=== PATIENT | male | born 1980 | race Caucasian/White ===

== ENCOUNTER 2016-05-21 12:38 | Outpatient (CLI) | payer OTHER ==
[2016-05-21] MEDS ORDERED: GADOPENTETATE DIMEGLUMINE 5 ML VIAL IVP ONE (14:43)
[2016-05-21] MEDS ORDERED: BUFFERED LIDOCAINE 10 ML SYRINGE IU ONE (14:43)
[2016-05-21] MEDS ORDERED: LIDOCAINE-MPF 1% 30 ML VIAL SUBQ ONE (14:43)
[2016-05-21] MEDS ORDERED: IOTHALAMATE MEGLUMINE 50 ML VIAL IVP ONE (14:43)
== END 2016-05-21 12:39 | disposition home or self-care (01) ==
DX: M24.412 Recurrent dislocation, left shoulder (principal); R20.2 Paresthesia of skin; M25.512 Pain in left shoulder
CPT/HCPCS: 23350; 73222; 77002; Q9961

== ENCOUNTER 2017-07-11 11:10 | Outpatient (CLI) | payer OTHER ==
[2017-07-11] MEDS ORDERED: IOPAMIDOL-300 100 ML VIAL ONE (11:24)
[2017-07-11] MEDS ORDERED: IOPAMIDOL-300 50 ML VIAL ONE (11:24)
[2017-07-11] MEDS ORDERED: IOPAMIDOL-300 100 ML VIAL IVP ONE (12:35)
[2017-07-11] MEDS ORDERED: IOPAMIDOL-300 50 ML VIAL PO ONE (12:37)
--- NOTE | 2017-07-11 13:31 | CT Report ---
ABDOMEN AND PELVIS CT: 07/11/2017 COMPARISON: No comparison. INDICATION: History of hernia with increased reflux. TECHNIQUE: Axial imaging of the abdomen and pelvis was performed with oral contrast and 100 mL Isovue 300 intravenous contrast. FINDINGS: Lung bases appear unremarkable. The liver, spleen, pancreas and adrenal glands have a normal CT appearance. Low attenuating focus in the superior right kidney is favored to represent a normal calyx. There is a small umbilical hernia. It contains a knuckle of bowel without evidence of bowel obstruction. No other abnormalities of bowel are seen. No free air or free fluid in the abdomen or pelvis. No bulky adenopathy. No bone lesions. IMPRESSION: THERE IS A SMALL UMBILICAL HERNIA. NO ACUTE FINDINGS ARE SEEN ABOUT THE ABDOMEN OR PELVIS. CT DOSE REDUCTION STATEMENT In accordance with CT protocol optimization, one or more of the following dose reduction techniques were utilized for this exam: automated exposure control, adjustment of mA and/or KV based on patient size, or use of iterative reconstructive technique. TD: 07/11/2017 13:30 EDY
== END 2017-07-11 11:11 | disposition home or self-care (01) ==
LOC: DI 11:10
PROVIDERS: ATTEND Internal Medicine Gastroenterology
DX: R10.31 Right lower quadrant pain (principal); R19.03 Right lower quadrant abdominal swelling, mass and lump
CPT/HCPCS: 74177; Q9967

== ENCOUNTER 2017-08-01 07:45 | Outpatient (CLI) | payer OTHER ==
[2017-08-01 07:54] LABS: BASOPHILS % (AUTO) 0.3 %; EOSINOPHILS % (AUTO) 0.7 %; HGB - HEMOGLOBIN 15.3 g/dL (14.0-18.0); LYMPHOCYTES # (AUTO) 1.7 10^3/uL (1.5-3.5); LYMPHOCYTES % (AUTO) 30.7 %; MEAN CORPUSCULAR HGB CONC 34.4 g/dL (32.0-36.0); MEAN CORPUSCULAR VOLUME 87.4 fL (80.0-94.0); MEAN PLATELET VOLUME 7.8 fL (7.4-11.4); MONOCYTES # (AUTO) 0.4 10^3/uL (0.0-1.0); MONOCYTES % (AUTO) 7.1 %; NEUTROPHILS # (AUTO) 3.3 10^3/uL (1.5-6.6); NEUTROPHILS % (AUTO) 61.2 %; PLT - PLATELET COUNT 207 10^3/uL (130-450); RED BLOOD COUNT 5.11 10^6/uL (4.70-6.10); WHITE BLOOD COUNT 5.4 x10^3/uL (4.8-10.8)
[2017-08-01 08:09] LABS: ALBUMIN 4.9 g/dL (3.2-5.5); ALBUMIN/GLOBULIN RATIO 1.6 (1.0-2.2); CALCIUM 9.1 mg/dL (8.5-10.3)
== END 2017-08-01 07:46 | disposition home or self-care (01) ==
LOC: LAB 07:45
PROVIDERS: ATTEND Internal Medicine Gastroenterology
DX: R10.13 Epigastric pain (principal)
CPT/HCPCS: 36415; 80053; 83690; 85025

== ENCOUNTER 2017-08-01 07:52 | Day surgery (SDC) | payer OTHER ==
[2017-08-01] MEDS ORDERED: LACTATED RINGERS 500 ML IV ONE (08:33)
[2017-08-01] MEDS ORDERED: MIDAZOLAM 2 MG/2 ML VIAL IVP ONE (10:11)
[2017-08-01] MEDS ORDERED: fentaNYL 250 MCG/5 ML VIAL IVP ONE (10:11)
[2017-08-01] MEDS ORDERED: LIDO GARGLE 30 ML BOTTLE ONE (10:15)
[2017-08-01 10:58] VITALS: BP 93/56
== END 2017-08-01 07:53 | disposition home or self-care (01) ==
LOC: SDS 07:52
PROVIDERS: ATTEND Internal Medicine Gastroenterology
PROC: 0DB48ZX Excision of Esophagogastric Junction, Via Natural or Artificial Opening Endoscopic, Diagnostic (ICD-10-PCS; principal; 2017-08-01 09:45)
DX: R10.13 Epigastric pain (principal)
CPT/HCPCS: 43239; 87081; A9270; J3010; 88305

== ENCOUNTER 2018-09-08 12:30 | Day surgery (SDC) | payer OTHER ==
--- NOTE | 2018-09-08 12:01 | ANESTHESIA ---
Pre-Anesthesia VS, & Labs - Diagnosis ventral hernia - Procedure ventral hernia repair Height 5 ft 11 in - NPO >8 hours Home Medications and Allergies SUMAtriptan [Imitrex] 25 mg PO ONCE PRN 07/31/17 Allergies/Adverse Reactions: Allergies Allergy/AdvReac Type Severity Reaction Status Date / Time No Known Drug Allergies Allergy Verified 07/31/17 13:32 Anes History & Medical History - Anesthetic History Anesthesia Complications: reports: No previous complications Family history of Anesthesia Complications: Denies Family history of Malignant Hyperthermia: Denies - Medical History Cardiovascular: reports: None Pulmonary: reports: Sleep apnea, CPAP use Gastrointestinal: reports: None Urinary: reports: None Musculoskeletal: reports: None Endocrine/Autoimmune: reports: None Skin: reports: None - Surgical History General: Other Eyes Ears Nose Throat (EENT): Other Exam General: Alert, Oriented x3, Cooperative Dental: WNL Mouth Opening: Can't Open Mouth Mallampati classification: II Plan Anesthesia Type: General, MAC Consent for Procedure(s) Verified and Reviewed: Yes Code Status: Attempt Resuscitation ASA classification: 2-Mild systemic disease Is this case an emergency?: No
[2018-09-08] MEDS ORDERED: CEFAZOLIN SODIUM IN 0.9 % NACL 2 GM/100 ML BAG IV ONE (12:53)
[2018-09-08] MEDS ORDERED: LACTATED RINGERS 1,000 ML IV ONE ×2 (13:09→16:53)
[2018-09-08] MEDS ORDERED: ceFAZolin 1 GM VIAL ONE (13:39)
[2018-09-08] MEDS ORDERED: BUPIVACAINE 0.5%-EPI 1:200000 PF 30 ML VIAL ONE (13:40)
[2018-09-08] MEDS ORDERED: SODIUM CHLORIDE 0.9% 20 ML ONE (13:40)
[2018-09-08] MEDS ORDERED: LIDOCAINE 1% 50 ML MDV ONE (13:41)
[2018-09-08] MEDS ORDERED: LIDOCAINE-MPF 2% 5 ML VIAL IM ONE (15:20)
[2018-09-08] MEDS ORDERED: KETOROLAC 30 MG/ML VIAL IVP ONE (15:20)
[2018-09-08] MEDS ORDERED: PROPOFOL 200 MG/20 ML VIAL IVP ONE (15:20)
[2018-09-08] MEDS ORDERED: DEXAMETHASONE 4 MG/ML VIAL IVP ONE (15:20)
[2018-09-08] MEDS ORDERED: ONDANSETRON 4 MG/2 ML VIAL IVP ONE (15:20)
[2018-09-08] MEDS ORDERED: fentaNYL 100 MCG/2 ML VIAL IVP ONE (15:20)
[2018-09-08] MEDS ORDERED: MIDAZOLAM 2 MG/2 ML VIAL IVP ONE (15:20)
[2018-09-08] MEDS ORDERED: BUPIVACAINE 0.5%-EPI 1:200000 PF 30 ML VIAL SUBQ ONE (15:39)
[2018-09-08] MEDS ORDERED: oxyCODONE 5 MG TABLET PO PRN (16:21)
[2018-09-08] MEDS ORDERED: IBUPROFEN 600 MG TABLET PO PRN (16:21)
[2018-09-08] MEDS ORDERED: ONDANSETRON 4 MG/2 ML VIAL IVP PRN (16:21)
[2018-09-08] MEDS ORDERED: ACETAMINOPHEN 325 MG TABLET PO PRN (16:21)
[2018-09-08] MEDS ORDERED: ACETAMINOPHEN 1,000 MG/100 ML 100 ML IV ONE (16:56)
[2018-09-08] MEDS ORDERED: HYDROmorphone 0.5 MG/0.5 ML SYRINGE ONE (16:56)
[2018-09-08 18:40] VITALS: BP 125/65
--- NOTE | 2018-09-08 19:43 | OPERATIVE REPORT ---
DATE OF SERVICE: 09/08/2018 Physician: Shantanu Lopez MD PREOPERATIVE DIAGNOSIS: Symptomatic ventral incisional hernia. POSTOPERATIVE DIAGNOSIS: Symptomatic ventral incisional hernia. PROCEDURE PERFORMED: Open repair of same with Ventralex soft tissue patch reconstruction. ANESTHESIA: General LMA by Vinod Muñoz CRNA. SURGEON: Shantanu Lopez MD ESTIMATED BLOOD LOSS: 10 mL COMPLICATIONS: None. FINDINGS: A midline infraumbilical fascial defect was present transversely oriented with preperitoneal fat in a multifenestrated fashion comprising the contents of the hernia sac, old Ethibond sutures were present, but no prosthetic mesh was identified in the area of the fascial defect. INDICATIONS: The patient is a 38-year-old gentleman with a recent onset of a painful, palpable, reducible infraumbilical mass. He has a history of prior umbilical hernia repair, thought to be with mesh in 2014. Examination revealed a tender reducible mass in the infraumbilical region deep to prior surgical scar. He was felt to be suffering from a ventral incisional hernia and advised to undergo repair with prosthetic mesh. TECHNIQUE: After informed consent, the patient was taken to the operating room and was placed under general laryngeal mask anesthesia by Vinod Muñoz CRNA. Preoperative preparation included application of sequential calf compression boots, administration 2 grams cefazolin intravenously within an hour of the incision. His periumbilical region had been clipped in the ASU. This was prepared with ChloraPrep solution and draped in the usual sterile fashion. The patient's prior curvilinear transverse infraumbilical incision was reopened to a distance of a total length of approximately 5-6 cm. Hemostasis achieved with electrocautery. Incision carried down through the scar tissue until the midline fascia was identified. The area of the defect was exposed. The hernia sac and contents were excised, which consisted entirely of preperitoneal fat. Fascial edges were mobilized circumferentially. Resulting fascial defect was 2 cm in diameter. Anterior fascia was mobilized circumferentially around the edges of the defect. After hemostasis was ensured, the wound was irrigated with antibiotic solution containing 1 gram of cefazolin per liter, a 4.[address] hernia patch was brought onto the field, soaked in antibiotic solution, and placed into an intraabdominal position, and was held against the anterior abdominal wall by the attached strap while the fascial defect was reapproximated transversely with interrupted 0 Ethibond sutures. Sutures incorporated the strap into the fascial closure at multiple points to anchor the mesh in place. Excess strap was excised and discarded. After hemostasis was ensured, the wound was irrigated once again with antibiotic solution, following which wound closure occurred in layers using interrupted 3-0 Vicryl, reapproximating the umbilical dermis to the anterior fascia, followed by additional 3-0 Vicryl to reapproximate the subcutaneous tissues, followed by 4-0 Monocryl subcuticular skin closure, followed by Dermabond. Anesthesia was terminated, and patient was transferred to the recovery room in satisfactory condition. Sponge and needle counts were correct x2. No drains were used. cc: Xu Lopez TD: 09/08/2018 16:40 MTDD
== END 2018-09-08 18:44 | disposition home or self-care (01) ==
LOC: SDS 12:30 → MS2 16:59 → SDS 18:44
PROVIDERS: ATTEND Internal Medicine Gastroenterology
PROC: 0WUF0JZ Supplement Abdominal Wall with Synthetic Substitute, Open Approach (ICD-10-PCS; principal; 2018-09-08 13:45)
DX: K43.2 Incisional hernia without obstruction or gangrene (principal); K21.9 Gastro-esophageal reflux disease without esophagitis; G47.30 Sleep apnea, unspecified; Z83.79 Family history of other diseases of the digestive system
CPT/HCPCS: 49565; 49568; A9270; C1781; J0131; J0690; J1170; J7120

== ENCOUNTER 2019-04-07 07:45 | Outpatient (CLI) | payer OTHER ==
--- NOTE | 2019-04-07 09:58 | MRI Report ---
Reason: LEFT SHLDR PAIN, LT SIDE C8 RADICULOPATHY Procedure Date: 04/07/2019 Accession Number: [id number] / [id number] Procedure: MRI - Cervical Spine W/O CPT Code: Final Report FULL RESULT: MRI cervical spine without contrast Indication: 39-year-old male. Left shoulder pain. Left-sided C8 radiculopathy. TECHNIQUE: 1. Sagittal STIR, T1 and T2. 2. Axial T1, T2 and T2*. COMPARISON: None. FINDINGS: There is minimal anterolisthesis of C2 on C3 (roughly 1-2 mm). There is mild retrolisthesis (2-3 mm) of C4 on C5. Vertebral alignment is otherwise unremarkable. There is at least partial absence of normal T2 signal from the disks at all levels suggesting at least early multilevel disk degeneration. The marrow signal intensity is unremarkable. Axial images: C2-C3: No disk herniation or spinal stenosis. Left-sided degenerative facet arthrosis with associated minor bony hypertrophy. No significant foraminal encroachment. C3-C4: Small posterocentral protrusion with mild mass effect on the ventral aspect of the thecal sac. No spinal stenosis. The neural foramina appear widely patent bilaterally. C4-C5: Retrolisthesis with associated uncovering of the disk. In addition, there appears to be a tiny posterior mild mass effect on the ventral aspect of the thecal sac. Thickening of the ligamenta flava causes minimal mass effect on the dorsal aspect of the dural sac. The spinal canal is relatively small. Only a small amount of CSF is seen surrounding the cord at this level. However, there is no flattening or deformity of the cord to suggest impingement. Uncovertebral hypertrophy gives rise to mild foraminal narrowing bilaterally. C5-C6: Tiny posterior protrusion with minimal mass effect on the thecal sac. No significant appearing spinal stenosis. Minor uncovertebral hypertrophy without significant foraminal encroachment. C6-C7: Small posterior extrusion with minimal mass effect on the thecal sac. No spinal stenosis. There is mild left-sided foraminal narrowing from uncovertebral and facet hypertrophy. No right foraminal stenosis. C7-T1: Small posterocentral extrusion with mild mass effect on the ventral aspect of the thecal sac. No spinal stenosis. Degenerative facet arthrosis with associated mild bony hypertrophy. No significant foraminal encroachment. The spinal cord appears to have a normal signal intensity throughout. IMPRESSION: 1. There is at least early, multilevel disk degeneration as described. Small disk herniations are seen at several levels. There is associated mass effect on the ventral aspect of the thecal sac without significant spinal stenosis. No evidence of spinal cord impingement. 2. There is mild foraminal narrowing at a few levels as described. No significant appearing foraminal stenosis is demonstrated in the cervical spine and there is no evidence of cervical nerve root impingement.
== END 2019-04-07 07:46 | disposition home or self-care (01) ==
LOC: DI 07:45
PROVIDERS: ATTEND General Practice
DX: M50.21 Other cervical disc displacement, high cervical region (principal); M47.812 Spondylosis without myelopathy or radiculopathy, cervical region; M48.02 Spinal stenosis, cervical region
CPT/HCPCS: 72141

== ENCOUNTER 2023-04-26 12:53 | Outpatient (CLI) | payer OTHER ==
--- NOTE | 2023-04-26 13:33 | Sleep Patient Instructions ---
Sleep Center Visit Summary - Patient Visit Information Reason for Visit: Initial consultation to establish care - Patient Instructions Additional Instructions: You will continue with CPAP therapy with pressure set at 5-12 cmH2O. A supply prescription will be updated with your DME supplier. I have added an order to update your CPAP machine. Please call to make a compliance follow up. We encourage you to continue to try to lose weight. Please follow up with the sleep care office one month after receiving new CPAP. - Clinic Information Contact: [facility] [address] [place] [address] [email or web address] T: [phone]
--- NOTE | 2023-04-26 13:39 | SLEEP CARE CONSULTATION ---
Information from patient questionnaire entered by Angel Chaney. I have reviewed and concur with the information entered by Angel Chaney. This document represents the service I personally performed and the decisions made by me, Karen Harrell ARNP. History of Present Illness Service Date and Time: 04/26/2023 1253 Reason for Visit: New patient, Previously diagnosed sleep apnea, sleep apnea on CPAP therapy Chief Complaint: reports: Other (UPDATE SUPPLIES) Date of Onset: 3+YRS Usual bedtime: 10-1030PM Time it takes to fall asleep: 15-20MINS Snores at night: Yes Observed to quit breathing while asleep: Yes Sleeps alone due to snoring: No Reasons for waking at night: reports: Gasping for air, Bathroom, Other (UNKNOWN) Toss, Turn, or Twitch while sleeping: Yes Recalls having dreams: Yes Usually gets out of bed at: 5AM Feels refreshed in the morning: No Morning headache: Yes (occasional) Sleepy or fatigued during the day: Yes Ever fallen asleep while driving: No Takes day naps: No Dreams during day naps: No Prior sleep studies: Yes Additional HPI information: EMEKA RUIZ was previously diagnosed to have mild, AHI 7.9, obstructive sleep apnea-hypopnea syndrome as seen in PSG dated 01/27/2019 at [facility] and comes in today to establish care for CPAP therapy. - Parasomnia Symptoms Ever been unable to move upon waking from sleep: No Walks in sleep: No Talks in sleep: No Ever acted out dreams in sleep: No Ever felt weak in the knees when startled or emotional: No Bothered by creepy, crawly, restless sensations in legs: Yes Problems with memory or concentration: No CPAP Compliance Data - Data Reviewed with Patient Average duration of nightly device use: 6 hours 23 minutes Compliance rate %: 93 (87/90 days used) Current pressure setting (cmH2O): 5-12 Average residual AHI: 0.1 Central apnea: 0 Obstructive apnea: 0 Hypopnea: 0.1 Average large leak: 7.6 L/min Compliance data discussion: He has a [employer]med Airsense 10 that was set up in 03-14-2018. He has been getting supplies from [employer]. He is using a full face mask. Subjective Missed days of use due to: reports: travel Patient concerns: denies: aerophagia, mask discomfort, air blowing in eyes, mask leak noise, condensation in mask/hose, nasal congestion, dry mouth, nose, throat, epistaxis Observed to snore while using device: No Current pressure setting perceived as: comfortable On therapy, patient: reports: sleeping better, awakening more refreshed, being more awake and alert during the day, more rested overall. denies: drowsiness while driving Initial Otwell Sleepiness Scale score: 6 (04/26/23) Past Medical History Past Medical History: reports: Other (3 hernia surgeries; various compressed vertebrae in neck and back) Social History The patient's occupation is a AM. Patient is and lives in [place]. Have you smoked in the past 12 months: No Alcohol use: Yes Alcohol amount and frequency: 1 BEER PER NIGHT Caffeine use: Yes Caffeine amount and frequency: 2 CUPS COFFEE Family History Family history of sleep disordered breathing: Yes Family Hx Sleep Apnea: Father: Snoring Allergies and Home Medications Known drug allergies: No Drug allergies reviewed: Yes Home medication list reviewed: Yes Allergy and home medication list: Allergies No Known Drug Allergies Allergy (Verified 04/24/23 11:43) Home Medications Medication Instructions Recorded Confirmed Last Taken Type Multivitamin See Rx Instructions .ROUTE .COMPLEX 04/26/23 04/26/23 Unknown History Review of Systems Cardiovascular: denies: high blood pressure Gastrointestinal: reports: heartburn, diarrhea Neurological: reports: headaches Psychiatric: reports: other (ADJ). denies: anxiety, depression Ear/Nose/Throat: reports: wisdom teeth removed. denies: tonsillectomy Musculoskeletal: reports: joint pain, neck pain, back pain Physical Exam Vital signs obtained and entered by: ANGEL Kennedy MA Blood Pressure: 142/86 (RIGHT ARM) Cuff size: regular Heart Rate: 74 O2 Saturation: 99 Height: 5 ft 10 in Weight: 209 lb 9.6 oz Body Mass Index: 30.0 BMI Classification: Obese Neck circumference: 17 Heart: regular rate and rhythm Lungs: clear bilaterally Impression and Plan 1. Obstructive Sleep Apnea-Hypopnea Syndrome, mild, with good treatment compliance and good apnea control. On CPAP therapy, the patient has better sleep quality and is more rested overall. He has an AirSense 10 that he received in March 2018 and is eligible for a new CPAP. The patients CPAP is over 5 years old and of reasonable use. Thus, the CPAP will be updated. A DWO prescription will be made. Patient has significant improvement of their sleep apnea and is satisfied with current CPAP therapy. Patient denies problems with oral dryness, nasal congestion, epistaxis, skin irritation or aerophagia. Compliance guidelines for new device and follow up discussed. Patient's apnea severity and rationale for treatment to reduce apnea, improve sleep quality and reduce cardiovascular and cerebrovascular events was reviewed. 2. Obesity, unspecified. Currently patients BMI is 30. Obesity increases the risk of apnea, CPAP pressure requirements and overall health risks especially cardiovascular and diabetes. Thus patient is advised to lose weight. * Continue auto CPAP pressure at 5-12 cmH2O * Update machine * Update supply prescription * Notify me if snoring with mask or feeling that the pressure is too much or too little * Attempt to lose weight * Call this office if any problems using CPAP * Return for follow up one month after obtaining new CPAP, or sooner if concerns arise Counseling Topics: Spare mask, Weight loss health impact Prescriptions: Auto CPAP, Device supplies Follow up with Sleep Care in: other (compliance followup) Visit Type: In Office Time Spent with Patient (minutes): 32 Provider Statement: I spent 100% of the Face to Face Visit with the patient with greater than 50% spent counseling the patient and coordination of care.
[2023-04-26 13:40] VITALS: BP 142/86; O2SAT 99
== END 2023-04-26 12:54 | disposition home or self-care (01) ==
LOC: SC 12:53
PROVIDERS: ATTEND Nurse Practitioner Family
DX: G47.33 Obstructive sleep apnea (adult) (pediatric) (principal); E66.9 Obesity, unspecified; Z68.30 Body mass index [BMI] 30.0-30.9, adult
CPT/HCPCS: 99203; 99212